=== PATIENT | male | born 1985 | race Caucasian/White ===

== ENCOUNTER 2016-09-20 14:56 | Inpatient (IN) | payer OTHER ==
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
[2016-09-20] MEDS ORDERED: HYDROmorphONE/DILAUDID 1 MG/ML SYR IVP ONE ×3 (15:00→16:29)
[2016-09-20] MEDS ORDERED: ceFAZolin 2 GM/DEXTROSE 100 ML IV ONE (15:00)
[2016-09-20] MEDS ORDERED: HYDROmorphONE/DILAUDID 1 MG/ML SYR ONE (15:01)
[2016-09-20] MEDS ORDERED: ONDANSETRON 4 MG/2 ML VIAL IVP ONE (15:02)
[2016-09-20] MEDS ORDERED: CEFAZOLIN 1 GM/DEXTROSE/50 ML BAG IV ONE (15:02)
[2016-09-20] MEDS ORDERED: TDAP ADULT 0.5 ML INJ (BOOSTRIX) IM ONE ×2 (15:05→15:06)
[2016-09-20] MEDS ORDERED: IOPAMIDOL (ISOVUE-300) 100 ML BTL IV ONE (15:08)
[2016-09-20 15:20] LABS: % IMMATURE GRANULYOCYTES 0.2 % (0.0-1.1); ABSOLUTE IMMATURE GRANULOCYTES 0.02 10^3/uL (0.00-0.10); ADD DIFF? NO; ADD MORPH? NO; ADD SCAN? NO; ATYPICAL LYMPHOCYTE FLAG 0 (0-99); FRAGMENT RBC FLAG 0 (0-99); HEMATOCRIT 47.7 % (40.0-51.0); HEMOGLOBIN 16.6 g/dL (13.7-17.5); LEFT SHIFT FLG 0 (0-99); LIPEMIA HEMOLYSIS FLAG 90 (0-99); MEAN CELL HEMOGLOBIN 31.8 pg (27.9-34.1); MEAN CELL HEMOGLOBIN CONCENTR. 34.8 g/dL (32.4-36.7); MEAN CELL VOLUME 91.4 fL (81.5-99.8); PLATELET CLUMPS FLAG 0 (0-99); PLATELET COUNT 258 10^3/uL (150-400); RED BLOOD CELL COUNT 5.22 10^6/uL (4.40-6.38); RED CELL DISTRIBUTION WIDTH 11.9 % (11.5-15.2)
[2016-09-20 15:31] LABS: ANION GAP 15 mEq/L (8-16); CALCIUM 10.7 mg/dL (8.5-10.4); CARBON DIOXIDE 23 mEq/l (22-31); CHLORIDE 100 mEq/L (97-110); CREATININE 1.2 mg/dL (0.7-1.3); GLOMERULAR FILTRATION RATE > 60; GLUCOSE 118 mg/dL (70-100); INR 0.99 (0.83-1.16); POTASSIUM 3.7 mEq/L (3.5-5.2); SODIUM 138 mEq/L (134-144)
[2016-09-20 15:32] LABS: APTT 23.5 SEC (23.0-38.0)
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
[2016-09-20] MEDS ORDERED: KETOROLAC 30 MG/1 ML SDV IVP ONE (17:29)
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
[2016-09-20] MEDS ORDERED: MIDAZOLAM 2 MG/2 ML VIAL ONE (20:04)
[2016-09-20] MEDS ORDERED: POLYMYXIN B SULFATE 500,000 UNIT/10 ML SYR IRR ONE ×2 (20:06→20:07)
[2016-09-20] MEDS ORDERED: BUPIVACAINE 0.5% 30 ML SDV ONE (20:06)
[2016-09-20] MEDS ORDERED: CITRIC ACID/SODIUM CITRATE 30 ML UDCUP ONE (20:09)
[2016-09-20] MEDS ORDERED: PROPOFOL/EMULSION 500 MG/50 ML BOTTLE IV ONE (20:21)
[2016-09-20] MEDS ORDERED: fentaNYL 250 MCG/5 ML INJ ONE (20:23)
[2016-09-20] MEDS ORDERED: LIDOCAINE 2% 5 ML SDV ONE (20:40)
[2016-09-20] MEDS ORDERED: ROCURONIUM 50 MG/5 ML VIAL ONE (20:40)
[2016-09-20] MEDS ORDERED: ceFAZolin 1 GM VIAL ONE ×2 (20:43)
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
[2016-09-20] MEDS ORDERED: SUGAMMADEX SODIUM 200 MG/2 ML VIAL IVP ONE (21:18)
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
[2016-09-20] MEDS ORDERED: fentaNYL 100 MCG/2 ML INJ ONE (21:38)
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
[2016-09-20] MEDS ORDERED: ONDANSETRON 4 MG/2 ML VIAL IVP PRN (21:41)
[2016-09-20] MEDS ORDERED: PROMETHAZINE HCL 25 MG/ML INJ ONE (21:43)
[2016-09-20] MEDS: HYDROmorphONE/DILAUDID 1 MG/ML SYR IVP PRN (22:46)
[2016-09-20] MEDS: D5W 1/2 NS W/ 20 KCl/L 1,000 ML IV SCH (22:47)
[2016-09-20] MEDS: OXYCODONE/APAP 5/325 TAB PO PRN (22:47)
[2016-09-20] MEDS: KETOROLAC 15 MG/1 ML SDV IVP SCH (23:51)
[2016-09-21] MEDS: KETOROLAC 15 MG/1 ML SDV IVP SCH ×2 (05:20→12:45)
[2016-09-21] MEDS: OXYCODONE/APAP 5/325 TAB PO PRN ×3 (05:20→13:22)
[2016-09-21] MEDS: HYDROmorphONE/DILAUDID 1 MG/ML SYR IVP PRN ×4 (09:17→22:15)
[2016-09-21] MEDS: D5W 1/2 NS W/ 20 KCl/L 1,000 ML IV SCH (09:36)
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
--- NOTE | 2016-09-21 14:13 | GOP ---
[f rep st] OPERATIVE REPORT DATE OF OPERATION: 09/20/2016 SURGEON: Swapnil Gentile MD AUTOMOTIVE SALES MANAGER: None. ANESTHESIOLOGIST: Dr. Lopez. PREOPERATIVE DIAGNOSIS: 1. Laceration, left leg. 2. Open navicular fracture, left foot. POSTOPERATIVE DIAGNOSIS: 1. Laceration, left leg. 2. Open navicular fracture, left foot. PROCEDURE PERFORMED: 1. Debridement and closure of a 20 cm laceration on the left leg. 2. Debridement, irrigation, and closure of open navicular fracture, left foot. FINDINGS: DESCRIPTION OF PROCEDURE: Patient taken to the operating room where he received satisfactory general endotracheal anesthesia by Dr. Lopez. He was placed in supine position, prepped and draped in u sual sterile fashion. The long laceration on the medial aspect of the left leg was sharply debrided and irrigated thoroughly. The skin flaps were elevated up and advanced, and the wound was closed in layers using 2-0 Vicryl for the subcutaneous tissue and interrupted 3-0 Prolene mattress sutures for the skin. A 1/4-inch Lang drain was brought out through one end of the incision, and the wound wa s infiltrated with 0.5% Marcaine. A second adjacent 3 cm incision was also closed in a similar jass r after thorough debridement and irrigation. Attention was then turned to the navicular fracture whi ch had a puncture wound extending down to the fracture. This was opened slightly. The wound was irr igated profusely and debrided. There was minimal contamination. Wound was then closed with interrup jfef 3-0 Prolene mattress sutures. The wounds were dressed. He tolerated procedure well. He was thomas en to the recovery room in good condition. There were no complications. /[id number]/MODL
[2016-09-21] MEDS ORDERED: HYDROmorphONE/DILAUDID 1 MG/ML SYR IVP ONE (15:24)
[2016-09-21] MEDS: HYDROmorphONE/DILAUDID 2 MG TAB PO PRN ×3 (15:49→22:14)
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
[2016-09-21] MEDS ORDERED: MAGNESIUM HYDROXIDE 30 ML UDCUP PO PRN (18:16)
[2016-09-21] MEDS ORDERED: BISACODYL 10 MG SUPP PR PRN (18:16)
[2016-09-21] MEDS ORDERED: LACTULOSE 20 GM/30 ML UDCUP PO PRN (18:16)
[2016-09-21] MEDS ORDERED: POLYETHYLENE GLYCOL 3350 17 GM PKT PO PRN (18:16)
[2016-09-21] MEDS: KETOROLAC 30 MG/1 ML SDV IVP SCH ×2 (18:24→23:56)
[2016-09-21] MEDS: SENNOSIDES/DOCUSATE SODIUM TAB PO SCH (19:41)
[2016-09-21] MEDS: ACETAMINOPHEN 500 MG TAB PO SCH (22:10)
[2016-09-22 05:05] LABS: % IMMATURE GRANULYOCYTES 0.2 % (0.0-1.1); ABSOLUTE IMMATURE GRANULOCYTES 0.02 10^3/uL (0.00-0.10); ADD DIFF? NO; ADD MORPH? NO; ADD SCAN? NO; ATYPICAL LYMPHOCYTE FLAG 0 (0-99); FRAGMENT RBC FLAG 0 (0-99); HEMOGLOBIN 12.9 g/dL (13.7-17.5); LEFT SHIFT FLG 0 (0-99); LIPEMIA HEMOLYSIS FLAG 80 (0-99); MEAN CELL HEMOGLOBIN 31.8 pg (27.9-34.1); MEAN CELL HEMOGLOBIN CONCENTR. 33.1 g/dL (32.4-36.7); MEAN CELL VOLUME 96.1 fL (81.5-99.8); MEAN PLATELET VOLUME 10.3 fL (8.7-11.7); PLATELET CLUMPS FLAG 0 (0-99); PLATELET COUNT 167 10^3/uL (150-400); RED BLOOD CELL COUNT 4.06 10^6/uL (4.40-6.38); RED CELL DISTRIBUTION WIDTH 12.1 % (11.5-15.2)
[2016-09-22] MEDS: ACETAMINOPHEN 500 MG TAB PO SCH ×2 (05:40→14:02)
[2016-09-22] MEDS: KETOROLAC 30 MG/1 ML SDV IVP SCH ×2 (05:42→12:28)
[2016-09-22 08:34] VITALS: BP 114/58; PULSE 63; RESP 15; TEMP 98.2; O2SAT 95
[2016-09-22] MEDS: SENNOSIDES/DOCUSATE SODIUM TAB PO SCH (09:05)
[2016-09-22] MEDS: HYDROmorphONE/DILAUDID 2 MG TAB PO PRN (12:28)
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
[2016-09-22] MEDS ORDERED: AMOXICILLIN/CLAVULANATE POT 875/125 MG TAB PO SCH (13:30)
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
== END 2016-09-22 16:34 | disposition home or self-care (01) | DRG 580 ==
LOC: EDUNIT# → F3N 22:30 → OBSVTOIN 09-21 16:00
PROVIDERS: ADMIT Surgery; ATTEND Surgery
PROC: 0JQP0ZZ Repair Left Lower Leg Subcutaneous Tissue and Fascia, Open Approach (ICD-10-PCS; principal; 2016-09-20 20:20)
PROC: 0QC Lower Bones, Extirpation (ICD-10-PCS; principal; 2016-09-20 20:20)
PROC: 0JQR0ZZ Repair Left Foot Subcutaneous Tissue and Fascia, Open Approach (ICD-10-PCS; principal; 2016-09-20 20:20)
DX: S81.812A Laceration without foreign body, left lower leg, initial encounter (principal); S92.255 Nondisplaced fracture of navicular [scaphoid] of left foot; S92.315A Nondisplaced fracture of first metatarsal bone, left foot, initial encounter for closed fracture; S92.325A Nondisplaced fracture of second metatarsal bone, left foot, initial encounter for closed fracture; S92.335A Nondisplaced fracture of third metatarsal bone, left foot, initial encounter for closed fracture; V23.4XXA Motorcycle driver injured in collision with car, pick-up truck or van in traffic accident, initial encounter; Y92.410 Unspecified street and highway as the place of occurrence of the external cause
CPT/HCPCS: 82947-QW; 96365; 97116-GP; 97161-GP; 97165-GO; 97530-GP; 97535-GO; J0690; J1170; J1885; J2250; J2405; J2550; J2704; J3010; Q9967

== ENCOUNTER → 2016-10-03 | Outpatient (CLI) | payer OTHER | LOC: BMCIMAGING 13:55 | PROVIDERS: ATTEND Podiatrist Foot & Ankle Surgery | DX: S92.252D Displaced fracture of navicular [scaphoid] of left foot, subsequent encounter for fracture with routine healing (principal); S92.312D Displaced fracture of first metatarsal bone, left foot, subsequent encounter for fracture with routine healing; S92.322D Displaced fracture of second metatarsal bone, left foot, subsequent encounter for fracture with routine healing; S92.332D Displaced fracture of third metatarsal bone, left foot, subsequent encounter for fracture with routine healing ==

== ENCOUNTER → 2016-10-24 | Outpatient (CLI) | payer OTHER | LOC: BMCIMAGING 12:48 | PROVIDERS: ATTEND Podiatrist Foot & Ankle Surgery | DX: S92.312D Displaced fracture of first metatarsal bone, left foot, subsequent encounter for fracture with routine healing (principal) ==

== ENCOUNTER → 2016-11-28 | Outpatient (CLI) | payer OTHER | LOC: BMCIMAGING 13:02 | PROVIDERS: ATTEND Podiatrist Foot & Ankle Surgery | DX: S92.312D Displaced fracture of first metatarsal bone, left foot, subsequent encounter for fracture with routine healing (principal); S92.322D Displaced fracture of second metatarsal bone, left foot, subsequent encounter for fracture with routine healing; S92.332A Displaced fracture of third metatarsal bone, left foot, initial encounter for closed fracture ==

== ENCOUNTER → 2016-12-26 | Outpatient (CLI) | payer OTHER | LOC: BMCIMAGING 13:28 | PROVIDERS: ATTEND Podiatrist Foot & Ankle Surgery | DX: S92.325D Nondisplaced fracture of second metatarsal bone, left foot, subsequent encounter for fracture with routine healing (principal) ==

== ENCOUNTER → 2017-03-06 | Outpatient (CLI) | payer OTHER | LOC: BMCIMAGING 14:39 | PROVIDERS: ATTEND Podiatrist Foot & Ankle Surgery | DX: S92.315D Nondisplaced fracture of first metatarsal bone, left foot, subsequent encounter for fracture with routine healing (principal) ==